=== PATIENT | male | born 1940 | race Caucasian/White ===

== ENCOUNTER 2018-01-19 11:38 | Outpatient (CLI) | payer MEDICARE, OTHER | END 2018-01-19 23:59 | disposition critical access hospital (66) | LOC: EMS 11:38 | PROVIDERS: ATTEND Surgery | DX: R41.0 Disorientation, unspecified (principal) | CPT/HCPCS: A0425; A0429 ==

== ENCOUNTER 2018-01-19 12:03 | Emergency (ER) | payer MEDICARE, OTHER ==
--- NOTE | 2018-01-19 12:37 | ED Physician Documentation ---
PD HPI ALTERED MENTAL STATUS - Stated complaint Stated Complaint: CONFUSION - Chief complaint Chief Complaint: Neuro - History obtained from History obtained from: Patient, EMS - History of Present Illness Timing - onset: Unknown (This is a 77-year-old gentleman who arrives by ambulance, he lives in [place] and reportedly had driven himself to [facility] And wondered in and was very confused. The chronicity of this is unknown, the patient does not know where he is or why he is here. He is able to say that he lives in [place]. Otherwise does not know what month or year it is and thinks he is 71 years Old, but he is 77. He is unable to identify that he is in a hospital. He has no specific complaints. He was noted to be hypoxemic prior to arrival into the 60s and admits that he has I think pulmonary fibrosis although he is a little unclear in the wording, he says he does wear oxygen at home when he needs it.) Review of Systems Unable to obtain: Confused PD ED PE NORMAL - Vitals Vital signs reviewed: Yes - General General: Other (He is alert and oriented to person only) - HEENT HEENT: PERRL, EOMI - Neck Neck: Supple, no meningeal sign, No bony TTP - Cardiac Cardiac: RRR, No murmur - Respiratory Respiratory: Other (Bilateral coarse crackles greater on the right) - Abdomen Abdomen: Normal bowel sounds, Soft, Non tender - Back Back: No CVA TTP, No spinal TTP - Derm Derm: Normal color, Warm and dry - Extremities Extremities: No edema, No calf tenderness / cord - 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 Eye Opening: Spontaneous Motor: Obeys Commands Verbal: Confused GCS Score: 14 - Psych Psych: Normal mood, Normal affect Results - Vitals Vitals: Vital Signs - 24 hr 01/19/18 01/19/18 12:31 14:47 Temperature 36.5 C Heart Rate 94 97 Respiratory 18 26 H Rate Blood Pressure 114/75 146/87 H O2 Saturation 96 Oxygen O2 Source Nasal cannula Oxygen Flow Rate 5 - Labs Labs: Laboratory Tests 01/19/18 01/19/18 01/19/18 12:54 12:54 12:54 WBC 7.0 RBC 3.89 L Hgb 14.0 Hct 41.1 L MCV 105.7 H MCH 36.1 H MCHC 34.1 RDW 14.4 Plt Count 128 L MPV 7.6 Neut # (Auto) 5.2 Lymph # (Auto) 1.0 L [place] # (Auto) 0.6 Eos # (Auto) 0.2 Baso # (Auto) 0.0 Absolute Nucleated RBC 0.00 Nucleated RBC % 0.0 PT 15.8 H INR 1.4 H Sodium 137 Potassium 3.8 Chloride 101 Carbon Dioxide 29 Anion Gap 7.0 BUN 18 Creatinine 0.8 Estimated GFR (MDRD) 94 Glucose 130 H Calcium 8.8 Total Bilirubin 0.8 AST 34 ALT 29 Alkaline Phosphatase 69 Total Protein 7.7 Albumin 3.0 L Globulin 4.7 H Albumin/Globulin Ratio 0.6 L Lipase 20 L Salicylates < 6.0 Acetaminophen < 10 L Ethyl Alcohol < 5.0 - Rads (name of study) 2 view chest Radiology: EMP read contemporaneously (Acute on chronic lung disease) CT of the head Radiology: EMP read contemporaneously (Atrophy and white matter changes without acute disease) PD MEDICAL DECISION MAKING - ED course ED course: He presents confused with unknown chronicity, seems like dementia, but the differential is broad given the lack of historical timing. On my evaluation the nurse had already tried the phone numbers for both brothers, one he left a voicemail for the other was no answer. We will try to get social work involved. We were able to get a hold of his brother who came up from [place]. He felt that his breathing was at his baseline, and understands that the pulmonary fibrosis is a chronic progressive disease. Given the history I do not think there is any acute decompensation from a pulmonary status today. He was counseled that the patient should probably no longer live alone and in fact probably he needs to be in full memory care facility. And no longer can drive. He is understanding and plans to make arrangements. - Sepsis Event Vital Signs: Vital Signs - 24 hr 01/19/18 01/19/18 12:31 14:47 Temperature 36.5 C Heart Rate 94 97 Respiratory 18 26 H Rate Blood Pressure 114/75 146/87 H O2 Saturation 96 Oxygen O2 Source Nasal cannula Oxygen Flow Rate 5 Departure - Departure Disposition: 01 Home, Self Care Clinical Impression: Confusion, Pulmonary fibrosis Dementia Qualifiers: Dementia type: unspecified type Dementia behavioral disturbance: without behavioral disturbance Qualified Code(s): F03.90 - Unspecified dementia without behavioral disturbance Condition: Stable Instructions: ED Dementia Caregiver Support Comments: As discussed he should no longer be allowed to drive and probably needs to be in a full memory care type of facility that is better able to care for him given his progressive dementia and confusion.
[2018-01-19 12:59] LABS: BASOPHILS % (AUTO) 0.5 %; EOSINOPHILS # (AUTO) 0.2 10^3/uL (0.0-0.7); EOSINOPHILS % (AUTO) 2.7 %; LYMPHOCYTES % (AUTO) 14.4 %; MEAN CORPUSCULAR HEMOGLOBIN 36.1 pg (27.0-31.0); MEAN CORPUSCULAR HGB CONC 34.1 g/dL (32.0-36.0); MEAN CORPUSCULAR VOLUME 105.7 fL (80.0-94.0); MEAN PLATELET VOLUME 7.6 fL (7.4-11.4); MONOCYTES # (AUTO) 0.6 10^3/uL (0.0-1.0); MONOCYTES % (AUTO) 7.9 %; NEUTROPHILS # (AUTO) 5.2 10^3/uL (1.5-6.6); NEUTROPHILS % (AUTO) 74.5 %; PLT - PLATELET COUNT 128 10^3/uL (130-450); RED BLOOD COUNT 3.89 10^6/uL (4.70-6.10); RED CELL DISTRIBUTION WIDTH 14.4 % (12.0-15.0)
[2018-01-19 13:05] LABS: INR 1.4 (0.8-1.2); PT - PROTHROMBIN TIME 15.8 secs (9.9-12.6)
[2018-01-19 13:14] LABS: ALBUMIN/GLOBULIN RATIO 0.6 (1.0-2.2); ALKALINE PHOSPHATASE 69 IU/L (42-121); ALT ALANINE AMINOTRANSFERASE 29 IU/L (10-60); AST ASPARTATE AMINOTRANSFERASE 34 IU/L (10-42); BILIRUBIN,TOTAL 0.8 mg/dL (0.2-1.0); BUN - BLOOD UREA NITROGEN 18 mg/dL (6-20); CALCIUM 8.8 mg/dL (8.5-10.3); CARBON DIOXIDE - CO2 29 mmol/L (21-32); CHLORIDE 101 mmol/L (101-111); CREATININE 0.8 mg/dL (0.6-1.2); GFR - MDRD 94 (>89); GLUCOSE 130 mg/dL (70-100); LIPASE 20 U/L (22-51); SALICYLATE < 6.0 mg/dL; SODIUM 137 mmol/L (135-145); TOTAL PROTEIN 7.7 g/dL (6.7-8.2)
--- NOTE | 2018-01-19 13:41 | CT Report ---
Procedure Date: 01/19/2018 Accession Number: [id number] / [id number] Procedure: CT - Head W/O CPT Code: FULL RESULT: EXAM: CT HEAD EXAM DATE: 01/19/2018 01:15 PM. CLINICAL HISTORY: Altered. COMPARISON: None. TECHNIQUE: Multiaxial CT images were obtained from the foramen magnum to the vertex. Reformats: Coronal. IV contrast: None. In accordance with CT protocol optimization, one or more of the following dose reduction techniques were utilized for this exam: automated exposure control, adjustment of mA and/or KV based on patient size, or use of iterative reconstructive technique. FINDINGS: Parenchyma: No intraparenchymal hemorrhage. No evidence of mass, midline shift, or CT findings of infarction. Lowry-white differentiation is distinct. Moderate patchy hypoattenuation in the cerebral white matter. Extraaxial Spaces: Mild volume loss. No subdural or epidural collections identified. Ventricles: Normal in size and position. Sinuses and Orbits: Mucosal thickening in the left maxillary sinus with surrounding osteitis, consistent with chronicity. Bones: No evidence of fracture or calvarial defect. Other: None. IMPRESSION: 1. No acute intracranial abnormality. 2. Moderate white matter disease may be sequela of chronic microvascular ischemia. RADIA
[2018-01-19 13:55] LABS: ACETAMINOPHEN < 10 ug/mL (10-30)
--- NOTE | 2018-01-19 14:06 | XRAY Report ---
Procedure Date: 01/19/2018 Accession Number: [id number] / [id number] Procedure: XR - Chest 2 View X-Ray CPT Code: 27039 FULL RESULT: EXAM: CHEST RADIOGRAPHY EXAM DATE: 01/19/2018 01:33 PM. CLINICAL HISTORY: Hypoxemia. COMPARISON: None. TECHNIQUE: 2 views. FINDINGS: Lungs/Pleura: Mildly low lung volumes. Extensive reticulonodular infiltrates throughout the right lung. Much lesser amount of similar infiltrates within the lingula. No effusion nor pneumothorax. Multiple blebs, right upper lobe. Mediastinum: Heart and mediastinal contours are unremarkable. Other: None. IMPRESSION: Acute on chronic lung disease consisting of bilateral lung infiltrates, right greater than left. RADIA
[2018-01-19 14:49] VITALS: BP 146/87
== END 2018-01-19 17:34 | disposition home or self-care (01) ==
LOC: EDBD → ED 12:03
DX: R41.0 Disorientation, unspecified (principal); J84.10 Pulmonary fibrosis, unspecified; F03.90 Unspecified dementia, unspecified severity, without behavioral disturbance, psychotic disturbance, mood disturbance, and anxiety
CPT/HCPCS: 36415; 70450; 71046; 80053; 80307; 83690; 85025; 85610; 99283; 99284; G0480; 80320; 80329